=== PATIENT | female | born 1980 | race Two or more races ===

== ENCOUNTER 2022-10-14 19:45 | Emergency (ER) | payer OTHER ==
--- NOTE | 2022-10-14 20:46 | ED Physician Documentation ---
PD HPI CHEST PAIN - Stated complaint Stated Complaint: CHEST PX - Chief complaint Chief Complaint: Cardiac - History obtained from History obtained from: Patient - History of Present Illness Timing - onset: How many weeks ago (3) Timing - onset during: Rest Timing - duration: Weeks (3) Timing - details: Intermittant Quality: Sharp, Pain Location: Left chest Radiation: No: Jaw, Neck, Back, Abdominal, Left upper extremity, Right upper extremity Improved by: Other (time) Worsened by: Other (nothinbg) Associated symptoms: Other (fluttering in left chest wall multiple times per day). No: Shortness of air, Diaphoresis, Nausea, Vomiting, Feeling faint / dizzy, General Weakness, Palpitations, Cough Similar symptoms before: Has not had sx before Recently seen: Not recently seen - Additional information Additional information: Previously well 41-year-old Sury Lopez has developed intermittent sharp pains in her left chest wall. She has a sensation of fluttering periodically that is not related to any specific activity and happens for several minutes at a time. She has no physical symptoms otherwise when this is occurring. She is also experiencing a very sharp well localized pain that is brief in nature seconds. She has no radiation of the pain she has no near syncope or lightheadedness no diaphoresis nausea or shortness of breath. She is not been recently ill. She has injured her chest wall over the left side over a year ago when she fell onto her outstretched left hand. She has had pain in that's portion of her chest wall periodically since. Review of Systems Constitutional: denies: Fever Ears: denies: Ear pain Nose: denies: Congestion Throat: denies: Sore throat Cardiac: reports: Chest pain / pressure, Palpitations. denies: Pedal edema, Calf pain Respiratory: denies: Dyspnea, Cough, Wheezing GI: denies: Abdominal Pain, Nausea, Vomiting, Constipation, Diarrhea : denies: Dysuria, Frequency PD PAST MEDICAL HISTORY - Present Medications Home Medications: Ambulatory Orders Medication Instructions Recorded Confirmed Doxycycline Hyclate 50 mg PO BID 10/14/22 10/14/22 - Allergies Allergies/Adverse Reactions: Allergies Allergy/AdvReac Type Severity Reaction Status Date / Time No Known Drug Allergies Allergy Verified 10/14/22 20:08 PD ED PE NORMAL - Vitals Vital signs reviewed: Yes (hypertensive ) - General General: Alert and oriented X 3, No acute distress, Well developed/nourished - HEENT HEENT: Atraumatic, PERRL, EOMI - Neck Neck: Supple, no meningeal sign, No bony TTP - Cardiac Cardiac: RRR, No murmur - Respiratory Respiratory: No respiratory distress, Clear bilaterally, Other (no chest wall tenderness) - Abdomen Abdomen: Normal bowel sounds, Soft, Non tender, Non distended, No organomegaly - Back Back: No CVA TTP, No spinal TTP - Derm Derm: Normal color, Warm and dry, No rash - Extremities Extremities: No deformity, No edema - Neuro Neuro: Alert and oriented X 3, 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, No motor deficit, No sensory deficit, Normal speech Eye Opening: Spontaneous Motor: Obeys Commands Verbal: Oriented GCS Score: 15 - Psych Psych: Normal mood, Normal affect Results - Vitals Vitals: Vital Signs - 24 hr 10/14/22 10/14/22 10/14/22 19:50 20:04 22:04 Temperature 36.1 C L 36.5 C Heart Rate 79 79 75 Respiratory 16 16 24 Rate Blood Pressure 170/102 H 170/102 H 156/97 H O2 Saturation 97 97 100 Oxygen O2 Source Room air - EKG (time done) 1958 Rate: Rate (enter#) (70) Rhythm: NSR QRS: Low voltage Ischemia: T wave inversion (lateral leads) Compare to prior EKG: Old EKG unavailable Computer interpretation: Disagree with computer ( I do not see poor R wave progression) - Labs Labs: Laboratory Tests 10/14/22 10/14/22 10/14/22 20:45 20:45 20:45 WBC 6.3 RBC 4.22 Hgb 13.0 Hct 38.3 MCV 90.8 MCH 30.8 MCHC 33.9 RDW 12.4 Plt Count 267 MPV 9.1 Neut # (Auto) 4.1 Lymph # (Auto) 1.6 [place] # (Auto) 0.4 Eos # (Auto) 0.2 Baso # (Auto) 0.1 Absolute Nucleated RBC 0.00 Nucleated RBC % 0.0 Sodium 136 Potassium 3.9 Chloride 104 Carbon Dioxide 25 Anion Gap 7.0 BUN 13 Creatinine 0.7 Estimated GFR (MDRD) 93 Glucose 97 Calcium 8.8 Total Bilirubin 0.9 AST 40 ALT 49 Alkaline Phosphatase 54 Troponin I High Sens < 2.3 L Total Protein 7.5 Albumin 4.2 Globulin 3.3 Albumin/Globulin Ratio 1.3 Lipase 29 - Rads (name of study) chest Radiology: Prelim report reviewed (Impression: Portable chest within normal limits for age.), EMP read indepedently PD Medical Decision Making - ED course Complexity details: reviewed results, re-evaluated patient, considered differential, d/w patient Reviewed Lab Results: We ordered a complete blood count chemistry panel and a sensitive troponin to evaluate this patient's chest pain. The patient was you block sick on all of her laboratory she had normal white blood cell count hemoglobin hematocrit and platelets. Her kidney and liver function were normal her electrolytes were normal. Electrocardiogram was done demonstrating no evidence of ischemia. ED course: 41-year-old Sury Lopez presents to the emergency department with complaints of a sharp pain in her left chest concern for a problem with her heart. She has been having a sensation of fluttering to the chest wall and I suspect this has something to do with her prior injury to her chest wall with a jarring injury from a fall more than a year ago. She has continued to have some issue with pain in that side of her chest since. We did not find anything specific to indicate a life-threatening process.We did do a comprehensive work-up to include an x-ray of the patient's chest electrocardiogram and blood work all of which were reassuring. Departure - Departure Disposition: 01 Home, Self Care Clinical Impression: Atypical chest pain, Chest wall pain Hypertension Qualifiers: Hypertension type: unspecified Qualified Code(s): I10 - Essential (primary) hypertension Condition: Stable Instructions: ED Chest Pain Atypical Unkn Cause, ED Strain Chest Wall, ED Hypertension Poss Follow-Up: LUIS MIGUEL HAAS ARNP [Primary Care Provider] - Comments: Sury, today looks like the fluttering sensation you are having her chest is likely due to a muscle spasm in in the muscles between the ribs. I suspect this is also related to your remote injury and the expectation is that over a period of years and not months or weeks this will eventually heal completely. I did notice your blood pressure was up quite a bit today and as we discussed it is indicated to go into see your primary care doctor about your blood pressure specifically. Generally there are some things to do to lower your blood pressure such as reducing your alcohol intake, reducing her salt intake and doing moderate exercise. Discharge Date/Time: 10/14/22 22:15
[2022-10-14 21:03] LABS: BASOPHILS # (AUTO) 0.1 10^3/uL (0.0-0.1); BASOPHILS % (AUTO) 0.9 %; EOSINOPHILS # (AUTO) 0.2 10^3/uL (0.0-0.7); EOSINOPHILS % (AUTO) 2.8 %; HCT - HEMATOCRIT 38.3 % (37.0-47.0); LYMPHOCYTES # (AUTO) 1.6 10^3/uL (1.5-3.5); LYMPHOCYTES % (AUTO) 24.7 %; MEAN CORPUSCULAR HEMOGLOBIN 30.8 pg (27.0-31.0); MEAN CORPUSCULAR HGB CONC 33.9 g/dL (32.0-36.0); MEAN CORPUSCULAR VOLUME 90.8 fL (81.0-99.0); MEAN PLATELET VOLUME 9.1 fL (7.9-10.8); MONOCYTES # (AUTO) 0.4 10^3/uL (0.0-1.0); MONOCYTES % (AUTO) 6.5 %; NEUTROPHILS # (AUTO) 4.1 10^3/uL (1.5-6.6); NEUTROPHILS % (AUTO) 65.1 %; PLT - PLATELET COUNT 267 10^3/uL (130-450); RED BLOOD COUNT 4.22 10^6/uL (4.20-5.40); RED CELL DISTRIBUTION WIDTH 12.4 % (12.0-15.0); WHITE BLOOD COUNT 6.3 x10^3/uL (4.8-10.8)
--- NOTE | 2022-10-14 21:05 | XRAY Report ---
PROCEDURE: Chest 1 View X-Ray INDICATIONS: chest pain TECHNIQUE: One view of the chest was acquired. COMPARISON: None. FINDINGS: Surgical changes and devices: None. Lungs and pleura: No pleural effusions or pneumothorax. Lungs are clear. Mediastinum: Mediastinal contours appear normal. Heart size is normal. Bones and chest wall: No suspicious bony lesions. Overlying soft tissues appear unremarkable. IMPRESSION: Portable chest within normal limits for age. Reviewed by: Abdulaziz Welsh MD on 10/14/2022 8:04 PM [facility] Approved by: Abdulaziz Welsh MD on 10/14/2022 8:04 PM [facility] Station ID: [id number]
[2022-10-14 21:26] LABS: ALBUMIN 4.2 g/dL (3.2-5.5); ALBUMIN/GLOBULIN RATIO 1.3 (1.0-2.2); BILIRUBIN,TOTAL 0.9 mg/dL (0.2-1.0); CALCIUM 8.8 mg/dL (8.5-10.3); CREATININE 0.7 mg/dL (0.4-1.0); POTASSIUM 3.9 mmol/L (3.5-5.0); TOTAL PROTEIN 7.5 g/dL (6.7-8.2)
[2022-10-14 22:06] VITALS: BP 156/97
== END 2022-10-14 22:15 | disposition home or self-care (01) ==
LOC: ED 19:45
DX: R07.89 Other chest pain (principal); I10 Essential (primary) hypertension
CPT/HCPCS: 36415; 80053; 83690; 84484; 85025; 93005; 99283; 99284